=== PATIENT | female | born 1985 ===

== ENCOUNTER 2016-10-06 09:47 | Emergency (ER) | payer OTHER ==
[2016-10-06 10:34] VITALS: BMI 23.3
[2016-10-06 10:35] VITALS: BP 135/63; TEMP 98.5; O2SAT 99
[2016-10-06] MEDS ORDERED: Dexamethasone 8 MG in Dextrose 5% In Water 50 ML IV ONE (10:45)
[2016-10-06 11:09] LABS: BASO % 0.3 % (0.0-2.0); EOS % 0.5 % (0.0-4.0); HEMATOCRIT 44.3 % (34.0-47.0); LYMPH # 1.7 K/uL (1.0-4.3); LYMPH % 19.2 % (20.0-40.0); MEAN CELL VOLUME 87.5 fl (81.0-99.0); MEAN CORPUSCULAR HEMOGLOBIN 28.6 pg (27.0-31.0); MEAN CORPUSCULAR HGB CONC 32.7 g/dL (33.0-37.0); MONO # 0.7 K/uL (0.0-0.8); NEUT # 6.5 K/uL (1.8-7.0); RED CELL DISTRIBUTION WIDTH 12.5 % (11.5-14.5)
[2016-10-06 11:15] LABS: ALB/GLOB RATIO 1.3 (1.0-2.1); ALKALINE PHOSPHATASE 96 U/L (38-126); ALT/SGPT 46 U/L (9-52); AST/SGOT 62 U/L (14-36); BILIRUBIN,TOTAL 1.5 mg/dl (0.2-1.3); BLOOD UREA NITROGEN 10 mg/dl (7-17); CALCIUM 10.2 mg/dL (8.4-10.2); CARBON DIOXIDE 23 mmol/L (22-30); CHLORIDE 106 mmol/L (98-107); GFR AFRICAN-AMERICAN > 60; GLUCOSE,RANDOM 89 mg/dL (65-105); POTASSIUM 4.9 MMOL/L (3.6-5.0); SODIUM 141 mmol/l (132-148); TOTAL PROTEIN 8.5 G/DL (6.3-8.2)
[2016-10-06 11:27] VITALS: RESP 18
--- NOTE | 2016-10-06 12:36 | RAD ---
HISTORY: SOB COMPARISON: No prior. TECHNIQUE: Chest PA and lateral FINDINGS: LUNGS: No active pulmonary disease. PLEURA: No significant pleural effusion identified. No pneumothorax apparent. CARDIOVASCULAR: Normal. OSSEOUS STRUCTURES: No significant abnormalities. VISUALIZED UPPER ABDOMEN: Normal. OTHER FINDINGS: None. IMPRESSION: No active disease.
--- NOTE | 2016-10-06 14:34 | ED PDOC ---
HPI: SOB/CHF/COPD Time Seen by Provider: 10/06/16 10:31 Chief Complaint (Nursing): Shortness Of Breath Chief Complaint (Provider): Im having a hard time breathing History Per: Patient History/Exam Limitations: no limitations Onset/Duration Of Symptoms: Days (2) Current Symptoms Are (Timing): Still Present Quality: Sharp, Tightness Current Respiratory Medications: None Associated Symptoms: Dizziness. denies: Heart Racing, Leg/Calf Pain Additional Complaint(s): 30yo female c/o difficulty breathing associated with mild upper chest pain ongoing x2 days. Denies leg edema or pain. Denies hemopetysis. Does also note throat tightness, denies difficulty swallowing or fever. Past Medical History Reviewed: Historical Data, Nursing Documentation, Vital Signs Vital Signs: Last Vital Signs Temp 98.5 F 10/06/16 10:30 Pulse 70 10/06/16 14:35 Resp 18 10/06/16 11:24 BP 135/63 10/06/16 10:30 Pulse Ox 99 10/06/16 14:35 - Medical History PMH: No Chronic Diseases - Surgical History Surgical History: Tonsillectomy - Family History Family History: States: Unknown Family Hx - Living Arrangements Living Arrangements: With Family - Social History Current smoker - smoking cessation education provided: No - Immunization History Hx Tetanus Toxoid Vaccination: No Hx Influenza Vaccination: No Hx Pneumococcal Vaccination: No - Allergies Allergies/Adverse Reactions: Allergies Allergy/AdvReac Type Severity Reaction Status Date / Time No Known Allergies Allergy Verified 10/06/16 10:30 Review of Systems ROS Statement: Except As Marked, All Systems Reviewed And Found Negative Constitutional: Negative for: Fever, Chills Eyes: Negative for: Pain ENT: Positive for: Throat Pain, Throat Swelling. Negative for: Ear Pain, Ear Discharge Cardiovascular: Positive for: Chest Pain, Palpitations Respiratory: Positive for: Shortness of Breath. Negative for: Cough Gastrointestinal: Negative for: Nausea, Vomiting Genitourinary Female: Negative for: Dysuria, Frequency Musculoskeletal: Negative for: Neck Pain, Shoulder Pain Skin: Negative for: Rash, Lesions, Jaundice Neurological: Positive for: Dizziness. Negative for: Weakness, Change in Speech , Seizures, Headache Physical Exam - Reviewed Nursing Documentation Reviewed: Yes Vital Signs Reviewed: Yes - Physical Exam Appears: Positive for: Well, Non-toxic, No Acute Distress Head Exam: Positive for: ATRAUMATIC, NORMAL INSPECTION, NORMOCEPHALIC Skin: Positive for: Normal Color, Warm, DRY Eye Exam: Positive for: EOMI, Normal appearance, PERRL ENT: Positive for: Pharyngeal Erythema, Other (tonsillectomy). Negative for: Tonsillar Exudate, Tonsillar Swelling Neck: Positive for: Normal, Painless ROM Cardiovascular/Chest: Positive for: Regular Rate, Rhythm Respiratory: Positive for: CNT, Normal Breath Sounds Gastrointestinal/Abdominal: Positive for: Bowel Sounds, Soft. Negative for: Tenderness, Guarding Back: Positive for: Normal Inspection Extremity: Positive for: Normal ROM. Negative for: Tenderness, Deformity, Swelling Neurologic/Psych: Positive for: Alert, Oriented. Negative for: Motor/Sensory Deficits - Laboratory Results Result Diagrams: 10/06/16 10:50 10/06/16 10:50 - ECG ECG: Positive for: Interpreted By Nh ECG Rhythm: Positive for: Sinus Rhythm, Nonspecific Changes Rate: 70 O2 Sat by Pulse Oximetry: 99 Pulse Ox Interpretation: Normal - Radiology X-Ray: Interpreted by Nh X-Ray Interpretation: No Acute Disease Medical Decision Making Medical Decision Making: Decadron ordered for sensation of throat swelling and pain. Bloodwork, EKG and CXR ordered. Analgesia initiated. Labs reviewed, trop neg Accession No. : [id number] Patient Name / ID : [id number] / [id number] Exam Date : 10/06/2016 11:06:16 ( Approved ) Study Comment : Sex / Age : F / 30Y Creator : Rosibel Lai Dictator : Rosibel Lai Admitting Clerk : Lockstitcher : Rosibel Lai Approver2 : Report Date : 10/06/2016 12:34:34 My Comment : HISTORY: SOB COMPARISON: No prior. TECHNIQUE: Chest PA and lateral FINDINGS: LUNGS: No active pulmonary disease. PLEURA: No significant pleural effusion identified. No pneumothorax apparent. CARDIOVASCULAR: Normal. OSSEOUS STRUCTURES: No significant abnormalities. VISUALIZED UPPER ABDOMEN: Normal. OTHER FINDINGS: None. IMPRESSION: No active disease. Disposition - Clinical Impression Clinical Impression: Dyspnea, Throat pain - Patient ED Disposition Is Patient to be Admitted: Transfer of Care Counseled Patient/Family Regarding: Studies Performed - Disposition Disposition: Transfer of Care Disposition Time: 15:37 Condition: STABLE Patient Signed Over To: Dulce Delvalle Handoff Comments: pending DDimer and dispo
[2016-10-06 14:36] VITALS: PULSE 70
== END 2016-10-06 15:58 | disposition home or self-care (01) ==
LOC: H.ER 09:47
DX: R06.02 Shortness of breath (principal); R07.0 Pain in throat; R06.00 Dyspnea, unspecified